=== PATIENT | female | born 2000 | race African-American/Black ===

== ENCOUNTER 2022-11-26 17:30 | Outpatient (CLI) | payer OTHER | END 2022-11-26 17:31 | disposition home or self-care (01) | LOC: SLEEPLAB 17:30 | PROVIDERS: ATTEND Internal Medicine | DX: G47.33 Obstructive sleep apnea (adult) (pediatric) (principal); R53.83 Other fatigue; F31.9 Bipolar disorder, unspecified; F41.9 Anxiety disorder, unspecified; E66.9 Obesity, unspecified | CPT/HCPCS: 95800 ==